=== PATIENT | female | born 1980 | race Caucasian/White ===

== ENCOUNTER 2021-02-24 03:27 | Emergency (ER) | payer SELFPAY ==
[~2021-02-24] VITALS: Ht 162.6 cm; Wt 54.4 kg
[2021-02-24] MEDS ORDERED: HYDROXYZINE HCL25 MG PO (03:57)
== END 2021-02-24 04:11 | disposition home or self-care (01) ==
LOC: ER 03:38
DX: L29.9 Pruritus, unspecified (principal); R51.9 Headache, unspecified; F17.210 Nicotine dependence, cigarettes, uncomplicated
CPT/HCPCS: 99282